=== PATIENT | female | born 1985 | race Caucasian/White ===

== ENCOUNTER 2016-12-25 11:00 | Inpatient (IN) | payer BC ==
[2016-12-25] MEDS ORDERED: Ondansetron HCl/PF 4 MG/2 ML Vial IVP PRN ×4 (11:07→16:42)
[2016-12-25] MEDS ORDERED: Promethazine HCl 25 MG/ML VIAL IM PRN ×2 (11:07→14:11)
[2016-12-25] MEDS ORDERED: Bicitra 30 ML UDCUP PO SCH (11:30)
[2016-12-25] MEDS: Lactated Ringer's 1,000 ML IV SCH (11:40)
[2016-12-25 12:02] VITALS: BMI 34.0
[2016-12-25 12:03] LABS: Hematocrit 37.1 % (36.0-47.0); Mean Platelet Volume 8.6 fL (7.4-10.4); Red Blood Cell (RBC) Count 4.05 mill/uL (4.20-5.40); White Blood Cell (WBC) Count 10.9 thou/uL (4.8-10.8)
[2016-12-25] MEDS ORDERED: Gentamicin Sulfate 120 MG in Premix Bag 1 BAG IVPB SCH (12:30)
[2016-12-25] MEDS ORDERED: Clindamycin/D5W 900 MG in Premix Bag 1 BAG IVPB SCH (12:30)
[2016-12-25] MEDS ORDERED: Oxytocin 10 UNITS/ML VIAL ONE (12:59)
[2016-12-25] MEDS ORDERED: ePHEDrine/0.9% NaCl/PF SYRINGE 50 mg/10 ml ONE (12:59)
[2016-12-25] MEDS ORDERED: Ondansetron HCl/PF 4 MG/2 ML Vial ONE (12:59)
[2016-12-25] MEDS ORDERED: Dexamethasone 4 mg/ml Vial ONE (12:59)
--- NOTE | 2016-12-25 13:18 | PDOC.LDHP ---
Labor and Delivery H&P Chief complaint: scheduled section HPI: 31yo at 39w0d by LMP here for repeat CS and risk reducing salpingectomy due to FH of early onset breast cancer. Current gestational age (weeks): 39 Due date: 01/01/17 Dating criteria: last menstrual period Grav: 4 Para: 2 OB History Details: h/o placental abruption at 35wk with first Current complications: none Abnormal US findings: No Past Medical History: hypothyroidism dx this , abn pap smear Current medications: pre- vitamins Previous surgical history: low tranverse CS Allergies/Adverse Reactions: Allergies Allergy/AdvReac Type Severity Reaction Status Date / Time cefuroxime axetil Allergy Verified 05/02/15 05:33 [From Ceftin] Social history: none - Physical Exam Vital signs reviewed and normal: yes General: NAD Heart: RRR Lungs: CTAB Abdomen: gravid Extremeties: no edema FHT: category 1 [place] contractions every: q5min - OB Labs RH: positive HIV: negative
[2016-12-25] MEDS ORDERED: Ketorolac Tromethamine 30 MG/ML VIAL ONE (14:00)
[2016-12-25] MEDS ORDERED: Naloxone HCl 0.4 mg/ml Vial IVP PRN ×2 (14:11)
[2016-12-25] MEDS ORDERED: Eucerin (Mineral Oil/Petrolatum,White) 30 gm Jar TOP PRN (14:11)
[2016-12-25] MEDS ORDERED: Naloxone HCl 0.4 mg/ml Vial IV PRN (14:11)
[2016-12-25] MEDS ORDERED: Promethazine HCl 25 MG SUPP PR PRN (14:11)
[2016-12-25] MEDS ORDERED: HYDROmorphone 2 MG/ML VIAL SLOW IVP PRN (14:11)
[2016-12-25] MEDS ORDERED: Meperidine HCl/PF 25 MG/ML VIAL SLOW IVP PRN (14:11)
[2016-12-25] MEDS ORDERED: Ketorolac Tromethamine 30 MG/ML VIAL IVP PRN (14:11)
[2016-12-25] MEDS ORDERED: diphenhydrAMINE HCl 50 MG/ML 1 ML VIAL IVP PRN (14:11)
[2016-12-25] MEDS ORDERED: Communication Order-Pharmacy FS SCH (14:15)
[2016-12-25] MEDS ORDERED: Ketorolac Tromethamine 30 MG/ML VIAL IVP SCH (14:15)
--- NOTE | 2016-12-25 14:20 | PDOC.OPDEL ---
OB Operative/Delivery Note Delivery Dr/Surgeon: Gabriel Assist: Morton Pre-Delivery Diagnosis: scheduled section Procedure/Post Delivery Dx: repeat low transverse CS (and risk reducing salpingectomy) Weeks gestation: 39 Anesthesia: spinal - Findings A Sex: male - 5 min: 9 - 10 min: 9 - Additional Findings/Plan Placenta delivered: spontaneous findings: low transverse hysterotomy without extension, normal uterus, normal tubes, normal ovaries, other (filmy omental adhesions to left adnexa) Estimated blood loss: 1000 Post delivery plan: routine recovery
[2016-12-25] MEDS ORDERED: LR / Pitocin 40 units/1000 ml 1,000 ML ONE (14:26)
--- NOTE | 2016-12-25 15:46 | PRG ---
DATE OF SERVICE: 12/25/2016 SECTION CLINIC SPECIALIST NOTE Time of intervention was roughly 1335 hours. Time of dictation is now 1406 hours. LOCATION: Labor and Delivery OR. In brief, I was asked by Dr. Erica Rios to assist in a scheduled repeat C- section on Ms. Murphy. This patient is at term and scheduled for repeat C- section and a bilateral risk reducing salpingectomy. Per Dr. Rios, risk reducing salpingectomy has been cleared for performance. I assisted with a low transverse repeat via Pfannenstiel skin incision without complication. Baby was vigorous at . Bilateral risk reducing salpingectomy was performed using 0 chromic ties. No complications were noted. EBL was at approximately 1000 mL. Complications were none. Counts correct. Pathology includes the bilateral tubal segments. PREOPERATIVE DIAGNOSES: 1. Repeat section at term. 2. Patient desires risk reducing salpingectomy. SURGEON: Dr. Erica Rios. CLINIC SPECIALIST: Dr. Kyle Morton. Disposition to recovery room in good and stable condition. For full details on this, please turn to the full dictation dictated by Dr. Rios. [facility]
[2016-12-25] MEDS ORDERED: Bisacodyl 10 MG SUPP PR PRN (16:42)
[2016-12-25] MEDS ORDERED: Lanolin Ointment 7 GM TUBE TOP PRN (16:42)
[2016-12-25] MEDS ORDERED: diphenhydrAMINE HCl 25 MG CAP PO PRN (16:42)
[2016-12-25] MEDS ORDERED: Acetaminophen 325 MG TAB PO PRN (16:42)
[2016-12-25] MEDS ORDERED: Adacel (T-DAP) 0.5 ML VIAL IM ONE (16:42)
[2016-12-25] MEDS: Ferrous Sulfate 325 MG TAB PO SCH (18:50)
[2016-12-25] MEDS: Docusate (Surfak) 240 MG CAP PO SCH (22:57)
[2016-12-26] MEDS: Lactated Ringer's 1,000 ML IV SCH (00:32)
[2016-12-26] MEDS: Simethicone Chewable 80 MG TAB PO PRN ×3 (00:58→21:22)
[2016-12-26] MEDS ORDERED: HYDROcodone/Acetaminophen 5/325 mg Tablet PO PRN (02:15)
[2016-12-26 05:12] LABS: Hematocrit 27.8 % (36.0-47.0); Mean Platelet Volume 7.9 fL (7.4-10.4); Red Blood Cell (RBC) Count 3.03 mill/uL (4.20-5.40); White Blood Cell (WBC) Count 11.2 thou/uL (4.8-10.8)
[2016-12-26] MEDS: Ferrous Sulfate 325 MG TAB PO SCH ×2 (09:22→17:15)
[2016-12-26] MEDS: Prenatal Vitamin 1 TAB PO SCH (09:22)
[2016-12-26] MEDS: Docusate (Surfak) 240 MG CAP PO SCH ×2 (09:22→21:22)
[2016-12-26] MEDS ORDERED: Levothyroxine Sodium 112 MCG TAB PO SCH (10:00)
--- NOTE | 2016-12-26 10:05 | PDOC.PP ---
Post Progress Note Post Day #: 1 -: doing well, min discomfort, needs to restart synthroid PO intake tolerated: yes Flatus: yes Ambulation: no (not yet) Vital Signs (12 hours) Temp Pulse Resp BP Pulse Ox 12/26/16 08:04 98.1 F 63 20 103/55 L 12/26/16 08:00 98.1 F 63 20 12/26/16 03:15 98.3 F 66 14 105/88 12/26/16 00:45 98.5 F 59 L 20 108/58 L 94 L Weight Weight 230 lb - Physical Examination General: NAD Cardiovascular: RRR Respiratory: clear to ausculation bilateral Abdominal: no distention Fundus firm & at: below umb Extremities: negative homans (B) Skin: no rash (inc dressing clean and dry) Neurological: no gross focal deficits Psychiatric: normal affect Result Diagrams: 12/26/16 04:51 Additional Labs: Post Labs Blood Type A POSITIVE 12/25/16 11:40 Hep Bs Antigen Non-Reactive S/CO (NonReactive) 12/25/16 11:40 (1) delivery, delivered, current hospitalization Code(s): O82 - ENCOUNTER FOR DELIVERY WITHOUT INDICATION Status: Acute - Assessment/Plan POD #1 doing well, no concerns, synthroid 112mcg order placed. Cont to advance orders.
[2016-12-26] MEDS: Ibuprofen 800 MG TAB PO SCH ×2 (14:22→21:22)
[2016-12-26] MEDS: Levothyroxine Sodium 112 MCG TAB PO SCH (14:23)
[2016-12-26] MEDS: HYDROcodone/Acetaminophen 5/325 mg Tablet PO PRN ×2 (15:44→22:31)
[2016-12-26] MEDS ORDERED: Ibuprofen 800 MG TAB PO SCH (22:00)
[2016-12-27] MEDS: Levothyroxine Sodium 112 MCG TAB PO SCH (04:29)
[2016-12-27] MEDS: Ibuprofen 800 MG TAB PO SCH ×3 (04:29→20:41)
[2016-12-27] MEDS: Docusate (Surfak) 240 MG CAP PO SCH ×2 (08:29→20:41)
[2016-12-27] MEDS: Ferrous Sulfate 325 MG TAB PO SCH ×2 (08:29→17:09)
[2016-12-27] MEDS: Prenatal Vitamin 1 TAB PO SCH (08:29)
--- NOTE | 2016-12-27 17:06 | PDOC.PP ---
Post Progress Note Post Day #: 2 PO intake tolerated: yes Flatus: yes Ambulation: yes Vital Signs (12 hours) Temp Pulse Resp BP 12/27/16 12:00 98.4 F 72 20 12/27/16 07:40 98.4 F 72 20 12/27/16 07:30 98.8 F 68 16 109/58 L Weight Weight 230 lb - Physical Examination General: NAD Cardiovascular: RRR Respiratory: clear to ausculation bilateral Abdominal: no distention, appropriately TTP (inc c/d/i) Fundus firm & at: umb-2 Extremities: negative homans (B) Skin: no rash Neurological: no gross focal deficits Psychiatric: normal affect Result Diagrams: 12/26/16 04:51 Additional Labs: Post Labs Blood Type A POSITIVE 12/25/16 11:40 Hep Bs Antigen Non-Reactive S/CO (NonReactive) 12/25/16 11:40 (1) delivery, delivered, current hospitalization Code(s): O82 - ENCOUNTER FOR DELIVERY WITHOUT INDICATION Status: Acute - Assessment/Plan Doing well, VSS Pain controlled Rh pos RImm Home tomorrow
[2016-12-28] MEDS ORDERED: Ibuprofen 800 MG TAB PO SCH (05:00)
[2016-12-28] MEDS: Levothyroxine Sodium 112 MCG TAB PO SCH (06:11)
[2016-12-28] MEDS: Docusate (Surfak) 240 MG CAP PO SCH (08:10)
[2016-12-28] MEDS: Ferrous Sulfate 325 MG TAB PO SCH (08:10)
[2016-12-28] MEDS: Prenatal Vitamin 1 TAB PO SCH (08:10)
--- NOTE | 2016-12-28 08:39 | PDOC.PP ---
Post Progress Note Post Day #: 3 -: c/o MCNEIL, not worse with upright position, moderate PO intake tolerated: yes Flatus: yes Ambulation: yes Weight Weight 230 lb - Physical Examination General: NAD Cardiovascular: no m/r/g Respiratory: clear to ausculation bilateral Abdominal: no distention, appropriately TTP (inc c/d/i) Fundus firm & at: umb-3 Extremities: negative homans (B) Skin: no rash Neurological: no gross focal deficits Psychiatric: normal affect Result Diagrams: 12/26/16 04:51 Additional Labs: Post Labs Blood Type A POSITIVE 12/25/16 11:40 Hep Bs Antigen Non-Reactive S/CO (NonReactive) 12/25/16 11:40 (1) delivery, delivered, current hospitalization Code(s): O82 - ENCOUNTER FOR DELIVERY WITHOUT INDICATION Status: Acute - Assessment/Plan VSSAF Doing well pain controlled MCNEIL- not c/w postdural puncture MCNEIL, possibly rebound from pain meds? pt will monitor for worsening when she takes pain meds, this am states it came back after taking ibuprofen. Rec hydration, rest and trial of caffiene. Anemia d/t surgical blood loss, Hgb 9.3, no sx anemia, DC with FE. DC home fu 2 wk
[2016-12-28 08:41] VITALS: BP 124/62; TEMP 98
[2016-12-28] MEDS: HYDROcodone/Acetaminophen 5/325 mg Tablet PO PRN (10:06)
--- NOTE | 2016-12-28 13:44 | OP ---
DATE OF OPERATION: 12/25/2016 PREOPERATIVE DIAGNOSES: 1. Intrauterine at 39 weeks and 0 days. 2. Prior section x2. 3. Family history of breast cancer. 4. Desires sterilization. POSTOPERATIVE DIAGNOSES: 1. Intrauterine at 39 weeks and 0 days. 2. Prior section x2. 3. Family history of breast cancer. 4. Desires sterilization. PROCEDURE: Repeat low transverse section via Pfannenstiel skin incision and risk reducing partial bilateral salpingectomy. ANESTHESIA: Spinal. ATTENDING SURGEON: Erica Rios M.D. EMERGENCY ROOM TECHNICIAN: Dr. Kyle Morton. ESTIMATED BLOOD LOSS: 1000 mL. PATHOLOGY: None. COMPLICATIONS: None. DRAINS: Rivera catheter. FINDINGS: Male , cephalic presentation, clear amniotic fluid, Apgars 9 and 9, weighing 8 poun ds, 5 ounces. Low transverse hysterotomy without extension. Filmy adhesions of the omentum to the left adnexa, otherwise normal tubes and ovaries bilaterally. OPERATIVE TECHNIQUE: The patient was taken to the operating room. Spinal anesthesia was obtained w mignon santos. The patient was prepped and draped in a sterile fashion in the dorsal supine pos ition with a leftward tilt. After ensuring adequacy of anesthesia, a Pfannenstiel skin incision was made and carried down to the underlying subcutaneous tissue with a knife. The fascia was nicked in the midline with a knife and carried laterally with the Mayos. The superior aspect of the fascia w as tented with 2 Kochers and dissected off the rectus with Mayos. The inferior aspect of the fascia was tented with 2 Kochers and dissected off the rectus down to the pubic symphysis. The rectus wer e bluntly divided in the midline and the peritoneum was bluntly entered into and manually retracted. The Suraj O retractor was placed. The lower uterine segment was incised in a transverse fashion and extended with the De Leon maneuver. The infant's head was brought to the hysterotomy and delivered atraumatically followed by the body. The infant's cord was clamped and infant handed to awaiting n eo team. Cord blood was obtained and placenta was allowed to spontaneously deliver. Fundal massage was performed and the uterus was exteriorized, cleared of all clots and debris. The hysterotomy wa s repaired with #1 Monocryl in a running locking fashion. Hemostasis was noted. A pack was placed over the hysterotomy and the left adnexa was visualized, leaving the uterus in situ. The filmy omen mirella adhesions were identified overlying the left adnexa to the mesosalpinx and round ligament and th is was undermined carefully with a finger and cauterized to release the adhesions. Once the fallopi an tube was freed, it was grasped with a Prescott clamp and the mesosalpinx was visualized to identif y a window. A window was then made in the mesosalpinx with the Bovie and the vessels and the mesosa lpinx were tied off with 2-0 chromic and the fallopian tube was then transected and the distal half of the fallopian tube was removed and sent for pathology. There was slight oozing on one of the ped icles from the ligatures and this was then once again ligated after clamping with hemostats and hemo stasis was noted to be excellent. The left adnexa was then visualized and the fallopian tube was gr asped with Nga clamp. A window was made in the mesosalpinx around the vessels and these were li gated and tied off, again a partial salpingectomy with the distal half of the fallopian tube was car ried out tying off with 2-0 chromic and sending the specimen for pathology. Once this had been comp leted, hemostasis was noted to be excellent. Irrigation was then performed of the hysterotomy and t he fallopian tube surgical sites. The hysterotomy was noted to be hemostatic. The fallopian tube a reas were then visualized and hemostasis was once again noted of these areas; however, some pooling of blood was noted in the pelvis and anterior cul-de-sac that was bright red, this was not extensive , but more than abnormal and felt not to be just be rundown, therefore thorough valuation of the low er pelvis was performed. A lap was placed to pack the bowel back and the fallopian tube sites were carefully examined and hemostasis was noted. There was actually a vessel off of the rectus that was oozing into the abdomen and this was the site where the blood was coming from and this was easily h emostatic with cautery. Irrigation was then performed. There was no active bleeding. All laps and instruments were removed out of the abdomen. The rectus were examined and noted to be hemostatic. The fascia was closed with 0 PDS x2 sutures with excellent reapproximation. The subcutaneous tissu e was irrigated and cauterized of any bleeders and reapproximated with 2-0 plain gut in a running fa shion. The skin was closed with 4-0 Monocryl in a subcuticular fashion. Dermabond was applied. Th e patient tolerated the procedure well. Sponge, lap, and needle counts were correct x2. The patien t was taken to recovery room in stable condition. The patient received gentamicin and clindamycin p rior to the procedure.
== END 2016-12-28 14:30 | disposition home or self-care (01) | DRG 765 ==
LOC: L&D 11:00 → 3SW 16:35 → EDSTATUS 01-01 20:18
PROVIDERS: ADMIT Student in an Organized Health Care Education/Training Program; ATTEND Student in an Organized Health Care Education/Training Program
PROC: 10D00Z1 Extraction of Products of Conception, Low, Open Approach (ICD-10-PCS; principal; 2016-12-25)
PROC: 0UB70ZZ Excision of Bilateral Fallopian Tubes, Open Approach (ICD-10-PCS; 2016-12-25)
PROC: 3E0R3GC Introduction of Other Therapeutic Substance into Spinal Canal, Percutaneous Approach (ICD-10-PCS; 2016-12-28)
DX: O34.211 Maternal care for low transverse scar from previous cesarean delivery (principal); D62 Acute posthemorrhagic anemia; O89.4 Spinal and epidural anesthesia-induced headache during the puerperium; Z3A.39 39 weeks gestation of pregnancy; Z37.0 Single live birth; Z80.3 Family history of malignant neoplasm of breast; Z30.2 Encounter for sterilization; O90.81 Anemia of the puerperium; O99.283 Endocrine, nutritional and metabolic diseases complicating pregnancy, third trimester; E03.9 Hypothyroidism, unspecified
CPT/HCPCS: 36415; 85027; 86780; 86850; 86900; 86901; 87340; 88302; J1100; J1580; J1885; J2274; J2405; J2590; J3490